=== PATIENT | male | born 1990 | race Caucasian/White ===

== ENCOUNTER 2017-05-29 15:24 | Emergency (ER) | payer OTHER ==
[~2017-05-29] VITALS: Ht 182.9 cm; Wt 94.5 kg
[2017-05-29 15:25] VITALS: BP 156/100; PULSE 78; RESP 20; TEMP 98.3; O2SAT 100
--- NOTE | 2017-05-29 15:30 | PD ---
Physical Exam Time Seen by Provider: 15:26 Narrative 26 y/o male here for evaluation of neck pain from a fall into a pool yesterday. [facility] Vital signs reviewed. Seen at triage desk. Awaiting bed placement. Data Data Last Documented VS Vital Signs Date Time Temp Pulse Resp B/P Pulse Ox O2 Delivery O2 Flow Rate FiO2 05/29/17 15:25 98.3 78 20 156/100 100 Room Air [facility] Medical Record Reviewed: Yes Supervised Visit with YANET: Rohan Tobar May 29, 2017 15:29
--- NOTE | 2017-05-29 18:49 | PD ---
HPI Chief Complaint: Back/ Neck Pain or Injury Time Seen by Provider: 18:49 Travel History International Travel<30 days: No Contact w/Intl Traveler<30days: No Traveled to known affect area: No History of Present Illness HPI 26-year-old male presents to the emergency Department with complaint of neck pain since last night after slipping and falling and hitting the front of his head on a pool deck. Denies loss of consciousness. He was seen at the [facility] and was told to him to [place] to rule out neck fracture. Denies paresthesias, loss of sensation, decreased range of motion, decreased strength to all extremities. Has been ambulatory with normal gait. Denies fever, vomiting. Denies back pain. Denies change in mentation, confusion, disorientation, slurred speech. Reports minimal headache. Denies lightheadedness or dizziness. Has taken tramadol and baclofen or symptom management. Allergies to Augmentin and morphine. Has no other medical complaints. No other modifying factors or associated signs and symptoms. [facility] Past Medical History Medical History: Denies Significant Hx Diminished Hearing: No Immunizations Current: Yes Social History Alcohol Use: Yes (occassionally ) Tobacco Use: No Substance Use: No Allergies-Medications (Allergen,Severity, Reaction): Coded Allergies: Augmentin (Verified Allergy, Severe, Rash, 05/29/17) Morphine (Verified Allergy, Severe, Hives, 05/29/17) Review of Systems Except as stated in HPI: all other systems reviewed are Neg Physical Exam Narrative GENERAL: Well-nourished, well-developed male patient, in no acute distress SKIN: Warm and dry. HEAD: Atraumatic. Normocephalic. No scalp lacerations or hematomas noted. No facial droop noted. Tongue midline. EYES: Pupils equal and round at 3 mm with brisk reaction. No scleral icterus. No injection or drainage. PERRLA. EOMI. ENT: Mucosa pink and moist. Airway patent. NECK: Cervical collar in place: removed for physical exam and reapplied. Midline point tenderness on palpation of the cervical spine. CARDIOVASCULAR: Regular rate and rhythm. No murmur appreciated. RESPIRATORY: No accessory muscle use. Clear to auscultation. Breath sounds equal bilaterally. GASTROINTESTINAL: Abdomen soft, non-tender, nondistended. Hepatic and splenic margins not palpable. Bowel sounds are active 4 quadrants. MUSCULOSKELETAL: No obvious deformities. No clubbing. No cyanosis. No edema. NEUROLOGICAL: Awake and alert. Oriented 3. No obvious cranial nerve deficits. Motor grossly within normal limits. Normal speech. No ataxia. No mid -line drift. Moves all extremities. 5/5 strength to all extremities. PSYCHIATRIC: Appropriate mood and affect; insight and judgment normal. Data Data Last Documented VS Vital Signs Date Time Temp Pulse Resp B/P Pulse Ox O2 Delivery O2 Flow Rate FiO2 05/29/17 15:25 98.3 78 20 156/100 100 Room Air Orders Collar [place] (05/29/17 ) Ct Cerv Spine W/O Contrast (05/29/17 ) [facility] Medical Decision Making Medical Screen Exam Complete: Yes Emergency Medical Condition: Yes Medical Record Reviewed: Yes Differential Diagnosis Cervical strain, cervical fracture, head injury Narrative Course 26-year-old male with neck pain after a mechanical slip and fall last night. He did his head and denies loss of consciousness. The patient admits to hitting their head, but denies loss of consciousness. Denies nausea, vomiting. On physical exam the patient is without raccoon eyes, parkinson signs, rhinorrhea , or hemotympanum. I do not suspect open or depressed skull fracture, and the patient has no signs of basilar skull fracture. [place] CT Head Injury Rule suggests a head CT is not necessary for this patient and clears the patient for head injury without imaging. She has midline point tenderness on palpation of the cervical spine. Cervical spine CT ordered. The patient medication for pain and he declined. He has taken tramadol and baclofen prior to arrival. 1899: Report given to Dr. Gonzales, my attending physician, change of shift. See her note for patient disposition. Yajaira Davidson [facility] May 29, 2017 18:49
[2017-05-29] MEDS ORDERED: BACL10TA PO (18:58)
[2017-05-29] MEDS ORDERED: TRAM50TA PO (18:59)
--- NOTE | 2017-05-29 19:52 | RADRPT ---
EXAM DATE/TIME: 05/29/2017 19:25 [place] COMPARISON: No previous studies available for comparison. INDICATIONS : Dove into pool and hit head, neckpain. RADIATION DOSE: 34.04 CTDIvol (mGy) MEDICAL HISTORY : None SURGICAL HISTORY : shoulder surgery ENCOUNTER: Initial ACUITY: 1 day PAIN SCALE: 8/10 LOCATION: cranial TECHNIQUE: Volumetric scanning of the cervical spine was performed. Multiplanar reconstructions i n the sagittal, coronal and oblique axial planes were performed. Using automated exposure control a nd adjustment of the mA and/or kV according to patient size, radiation dose was kept as low as reason ably achievable to obtain optimal diagnostic quality images. DICOM format image data is available e lectronically for review and comparison. FINDINGS: VERTEBRAE: Normal vertebral body height. ALIGNMENT: No evidence of subluxation. C2-C3: The bony spinal canal is normal in size. No evidence of disc bulge or herniation. The neura l foramina are bilaterally patent. C3-C4: The bony spinal canal is normal in size. No evidence of disc bulge or herniation. The neura l foramina are bilaterally patent. C4-C5: The bony spinal canal is normal in size. No evidence of disc bulge or herniation. The neura l foramina are bilaterally patent. C5-C6: The bony spinal canal is normal in size. No evidence of disc bulge or herniation. The neura l foramina are bilaterally patent. C6-C7: The bony spinal canal is normal in size. No evidence of disc bulge or herniation. The neura l foramina are bilaterally patent. C7-T1: The bony spinal canal is normal in size. No evidence of disc bulge or herniation. The neura l foramina are bilaterally patent. CONCLUSION: Negative for fracture. MRI may be of benefit if symptomatic. Rupert Gifford MD FACR on May 29, 2017 at 19:49 Board Certified Radiologist. This report was verified electronically.
[2017-05-29] MEDS ORDERED: TYLE325T PO (20:25)
--- NOTE | 2017-05-29 20:26 | PD ---
Physical Exam Narrative I, Dr. Gonzales, have reviewed the advance practice practitioner's documentation and am in agreement, met with the patient face to face, made the diagnosis, and the medical decision making was done by me. *My assessment and Findings: r/o cervical spine fracture 26yo M sent from [facility] to r/o cervical spine fracture. Pt slip and fell into pool yesterday and hit his head. Pt denies any LOC and is complaining of neck pain. CT cervical spine negative for fracture. MRI may be of benefit if symptomatic. Pt is refusing MRI at this time even though he still has some midline tenderness. Pt has no neurologic deficits including weakness or numbness. States he just wants to follow up with [facility] tomorrow. Will give him a copy of his CT scan. Strict return precautions given. Data Data Last Documented VS Vital Signs Date Time Temp Pulse Resp B/P Pulse Ox O2 Delivery O2 Flow Rate FiO2 05/29/17 15:25 98.3 78 20 156/100 100 Room Air Orders Collar [place] (05/29/17 ) Ct Cerv Spine W/O Contrast (05/29/17 ) MDM Supervised Visit with YANET: Yes Diagnosis Primary Impression: Neck pain Patient Instructions: General Instructions Departure Forms: Tests/Procedures Additional Instruction: Please return to the ED if you have worsening symptoms. Please obtain MRI cspine if symptoms persist. Med/Other Pt SpecificInfo: Prescription(s) given Scripts Acetaminophen (Tylenol)325 Mg Lau565 Mg PO Q6H PRN (PAIN SCALE 1 TO 4) #20 TAB Ref 0 Prov:Court Gonzales DO 05/29/17 Disposition: 01 DISCHARGE HOME Condition: Stable Court Gonzales DO May 29, 2017 20:26
== END 2017-05-29 20:56 | disposition home or self-care (01) ==
LOC: NEPD 15:24
DX: M54.2 Cervicalgia (principal); R51 Headache; W01.0XXA Fall on same level from slipping, tripping and stumbling without subsequent striking against object, initial encounter
CPT/HCPCS: 72125; 99284; L0150